=== PATIENT | female | born 1940 | race Caucasian/White ===

== ENCOUNTER → 2021-02-13 | Outpatient (CLI) | payer MEDICARE ==
--- NOTE | 2021-02-13 17:18 | US ---
EXAMINATION TYPE: US venous doppler duplex LE LT DATE OF EXAM: 02/13/2021 4:46 PM COMPARISON: NONE CLINICAL HISTORY: R22.42 Swelling of left lower leg. Left anterior calf palp. Patient believes it to be a bug bite but was sent to r/o blood clot. No trauma. No leg redness or swelling. SIDE PERFORMED: Left TECHNIQUE: The lower extremity deep venous system is examined utilizing real time linear array sonog joycelyn with graded compression, doppler sonography and color-flow sonography. VESSELS IMAGED: Common Femoral Vein Deep Femoral Vein Greater Saphenous Vein * Femoral Vein Popliteal Vein Small Saphenous Vein * Proximal Calf Veins (* superficial vessels) Left Leg: Negative for DVT. Area of concern scanned: No SVT visualized. IMPRESSION: No evidence of left lower extremity DVT.
== END | disposition home or self-care (01) ==
LOC: RADUSWWP 16:27
PROVIDERS: ATTEND Physician Assistant
DX: R22.42 Localized swelling, mass and lump, left lower limb (principal)